=== PATIENT | male | born 1985 | race Caucasian/White ===

== ENCOUNTER 2018-08-06 12:00 | Outpatient (CLI) | payer OTHER, SELFPAY ==
[2018-08-06 12:32] LABS: Abs Immature Grans 0.01 k/cumm (0.0-0.09); Absolute Basophil Count 0.03 k/cumm (0.0-0.2); Absolute Eosinophil Count 0.07 k/cumm (0.0-0.7); Absolute Lymphocyte Count 1.37 k/cumm (1.2-3.4); Absolute Monocyte Count 0.52 k/cumm (0.11-0.7); Absolute Neutrophil Count 3.36 k/cumm (1.2-6.7); Basophils % 0.6; Eosinophils % 1.3; HGB 16.9 g/dL (13.5-17.5); Immature Grans % 0.2; Lymphocytes % 25.6; Mean Corp. HGB Concentration 34.5 g/dL (32.0-36.0); Mean Corpuscular Volume 86.9 fL (80-95); Mean Platelet Volume 9.2 fL (8.0-11.0); Monocytes % 9.7; Neutrophils % 62.6; Platelet Count 236 x1000/uL (130-400); RBC 5.64 m/cumm (4.50-6.00); RBC Distribution Width 12.3 % (11.8-14.1); White Blood Cell Count 5.36 k/cumm (4.4-10.8)
--- NOTE | 2018-08-06 12:40 | DI.RAD_ITS ---
SYMPTOMS/DIAGNOSIS: CHRONIC COUGH, R05 PA AND LATERAL CHEST: The heart is normal in size. The lungs are clear. The mediastinal structures and pleura appear intact. CONCLUSION: Normal chest.
[2018-08-06 13:06] LABS: ALT 28 U/L (12-78); AST 16 U/L (15-37); Albumin 4.4 g/dL (3.4-5.0); Alkaline Phosphatase 109 U/L (46-116); Anion Gap 6.5 mmol/L (3-11); BUN 11 mg/dL (7-18); Bilirubin, Total 0.6 mg/dL (0.2-1.0); CO2 29.5 mmol/L (21.0-32.0); CREATININE 1.09 mg/dL (0.70-1.30); Calcium 9.8 mg/dL (8.5-10.1); Chloride 103 mmol/L (98-107); Glucose 152 mg/dL (70-100); NT-proBNP 52 pg/mL; Potassium 4.5 mmol/L (3.5-5.1); Sodium 139 mmol/L (136-145); TSH (W/Ref FT4) 2.53 uIU/mL (0.358-3.74); Total Protein 8.3 g/dL (6.4-8.2); Troponin I < 0.02 ng/mL (0.00-0.06)
[2018-08-06 13:09] LABS: D-Dimer 168 ng/mlFEU (<500)
== END 2018-08-06 12:20 ==
PROVIDERS: PCP Nurse Practitioner; Visit Provider Nurse Practitioner
DX: R07.89 Other chest pain (principal); R05 Cough
CPT/HCPCS: 36415; 80053; 71046; 83880; 84443; 84484; 85025; 85379

== ENCOUNTER 2018-11-03 08:43 | Outpatient (REF) | payer OTHER, SELFPAY ==
[2018-11-03 15:13] LABS: Cholesterol 206 mg/dL (50-200); Glucose 135 mg/dL (70-100); HDL Cholesterol 48 mg/dL (40-60); LDL CHOLESTEROL 130 mg/dL (<100); Triglyceride 195 mg/dL (30-150)
== END 2018-11-03 09:03 ==
LOC: NCHCN 08:43
PROVIDERS: PCP Nurse Practitioner; Visit Provider Nurse Practitioner
DX: Z00.00 Encounter for general adult medical examination without abnormal findings (principal); Z13.1 Encounter for screening for diabetes mellitus; Z13.220 Encounter for screening for lipoid disorders; Z83.3 Family history of diabetes mellitus
CPT/HCPCS: 80061; 82947; 83721

== ENCOUNTER 2018-11-05 11:44 | Outpatient (REF) | payer OTHER, SELFPAY ==
[2018-11-05 21:11] LABS: Hemoglobin A1C 6.2 % (4.5-6.2)
== END 2018-11-05 12:04 ==
LOC: NCHCN 11:44
PROVIDERS: PCP Nurse Practitioner; Visit Provider Nurse Practitioner
DX: R73.01 Impaired fasting glucose (principal)
CPT/HCPCS: 83036

== ENCOUNTER 2019-12-28 10:10 | Outpatient (CLI) | payer OTHER, SELFPAY ==
[2019-12-29 21:04] LABS: COVID-19 RT-PCR UVMMC Result Negative (Negative)
== END 2019-12-28 10:30 ==
PROVIDERS: PCP Nurse Practitioner; Visit Provider Internal Medicine
DX: Z11.59 Encounter for screening for other viral diseases (principal)
CPT/HCPCS: U0003

== ENCOUNTER 2019-12-30 09:07 | Outpatient (CLI) | payer OTHER, SELFPAY ==
[2019-12-31 15:55] LABS: COVID-19 RT-PCR UVMMC Result Negative (Negative)
== END 2019-12-30 09:27 ==
PROVIDERS: PCP Nurse Practitioner; Visit Provider Internal Medicine
DX: Z11.59 Encounter for screening for other viral diseases (principal)
CPT/HCPCS: U0003

== ENCOUNTER 2020-06-08 20:50 | Outpatient (REF) | payer OTHER, SELFPAY ==
[2020-06-08 22:09] LABS: Hemoglobin A1C 6.2 % (<5.7)
[2020-06-16 13:35] LABS: Anaplasma phagocytophilum Negative (Negative); Ehrlichia chaffeensis Negative (Negative); Ehrlichia ewingii/canis Negative (Negative); Ehrlichia muris eauclairensis Negative (Negative); Lyme Ab w Rflx to Lyme Confirm Negative (Negative)
[2020-06-16 13:36] LABS: B. miyamotoi PCR Negative (Negative); Babesia divergens/MO-1 Negative (Negative); Babesia duncani Negative (Negative); Babesia microti Negative (Negative)
== END 2020-06-08 21:10 ==
LOC: NCHCN 20:50
PROVIDERS: PCP Nurse Practitioner; Visit Provider Internal Medicine
DX: M25.511 Pain in right shoulder (principal); R73.03 Prediabetes; M25.512 Pain in left shoulder
CPT/HCPCS: 87798; 83036; 86618

== ENCOUNTER 2021-03-26 19:53 | Outpatient (REF) | payer OTHER, SELFPAY ==
[2021-03-27 00:33] LABS: COVID-19 RT-PCR UVMMC Result Negative (Negative)
== END 2021-03-26 19:54 | disposition home or self-care (01) ==
LOC: NCHCN 19:53
PROVIDERS: PCP Nurse Practitioner; Visit Provider Internal Medicine
DX: Z20.822 Contact with and (suspected) exposure to COVID-19 (principal); J06.9 Acute upper respiratory infection, unspecified
CPT/HCPCS: U0003

== ENCOUNTER 2021-05-09 08:05 | Outpatient (REF) | payer OTHER, SELFPAY ==
[2021-05-09 21:29] LABS: Abs Immature Grans 0.01 10^3/uL (0.0-0.06); Absolute Basophil Count 0.02 10^3/uL (0.0-0.2); Absolute Eosinophil Count 0.05 10^3/uL (0.0-0.7); Absolute Lymphocyte Count 1.75 10^3/uL (1.2-3.4); Absolute Monocyte Count 0.45 10^3/uL (0.1-0.8); Absolute Neutrophil Count 2.08 10^3/uL (1.2-6.7); Basophils % 0.5; Eosinophils % 1.1; HCT 47.2 % (40.0-50.0); HGB 15.9 g/dL (13.5-17.5); Immature Grans % 0.2; Lymphocytes % 40.1; MCH 29.5 pg (27.0-33.0); MCHC 33.7 % (32.0-36.0); MCV 87.6 fL (80-95); MPV 9.8 fL (8.0-11.0); Monocytes % 10.3; Neutrophils % 47.8; Nucleated RBC 0 %; Platelet Count 225 10^3/uL (130-400); RBC 5.39 10^6/uL (4.36-5.78); RDW 11.8 % (11.8-14.1); RDW-SD 37.7 fL; WBC 4.36 10^3/uL (4.4-10.8)
[2021-05-09 21:32] LABS: ESR 3 mm/hr (0-15)
[2021-05-09 21:56] LABS: Hemoglobin A1C 6.1 % (<5.7)
[2021-05-10 06:44] LABS: ALT 32 U/L (16-63); AST 18 U/L (15-37); Albumin 4.4 g/dL (3.4-5.0); Alkaline Phosphatase 90 U/L (46-116); Anion Gap 6.9 mmol/L (3-11); BUN 16 mg/dL (7-18); Bilirubin, Total 0.6 mg/dL (0.2-1.0); CO2 28.1 mmol/L (21.0-32.0); CREATININE 1.1 mg/dL (0.70-1.30); Calculated LDL 123 mg/dL (<100); Chloride 105 mmol/L (98-107); Cholesterol 188 mg/dL (<200); Glucose 132 mg/dL (74-106); HDL Cholesterol 49 mg/dL (40-60); Potassium 4.4 mmol/L (3.5-5.1); Sodium 140 mmol/L (136-145); Total Protein 7.4 g/dL (6.4-8.2); Triglyceride 82 mg/dL (<150)
[2021-05-10 07:04] LABS: Calcium 9.4 mg/dL (8.5-10.1)
[2021-05-11 10:41] LABS: Lyme Ab w Rflx to Lyme Confirm Negative (Negative)
[2021-05-13 13:22] LABS: Anaplasma phagocytophilum Negative (Negative); B. miyamotoi PCR Negative (Negative); Babesia divergens/MO-1 Negative (Negative); Babesia duncani Negative (Negative); Babesia microti Negative (Negative); Ehrlichia chaffeensis Negative (Negative); Ehrlichia ewingii/canis Negative (Negative); Ehrlichia muris eauclairensis Negative (Negative)
[2021-05-14 08:38] LABS: Bartonella Henselae IgG <1:128 titer (<1:128); Bartonella Henselae IgM <1:20 titer (<1:20); Bartonella Quintana IgG <1:128 titer (<1:128); Bartonella Quintana IgM <1:20 titer (<1:20)
[2021-05-14 08:41] LABS: ANA Interpretation Positive (Negative); ANA Titer Pattern 1:160 Speckled
== END 2021-05-09 08:06 | disposition home or self-care (01) ==
LOC: NCHCN 08:05
PROVIDERS: PCP Nurse Practitioner; Visit Provider Internal Medicine
DX: R73.03 Prediabetes (principal); H20.00 Unspecified acute and subacute iridocyclitis
CPT/HCPCS: 80053; 80061; 85652; 87798; 83036; 85025; 86038; 86611; 86618

== ENCOUNTER 2021-05-14 17:23 | Outpatient (REF) | payer OTHER, SELFPAY ==
[2021-05-17 14:33] LABS: dsDNA Ab, IgG <12.3 IU/mL (<30.0)
== END 2021-05-14 17:24 | disposition home or self-care (01) ==
LOC: NCHCN 17:23
PROVIDERS: PCP Nurse Practitioner; Visit Provider Internal Medicine
DX: R79.89 Other specified abnormal findings of blood chemistry (principal); H20.00 Unspecified acute and subacute iridocyclitis
CPT/HCPCS: 86225

== ENCOUNTER 2021-06-13 11:19 | Outpatient (REF) | payer OTHER, SELFPAY ==
[2021-06-14 16:14] LABS: COVID-19 RT-PCR UVMMC Result Negative (Negative)
== END 2021-06-13 11:20 | disposition home or self-care (01) ==
LOC: NCHCN 11:19
PROVIDERS: PCP Nurse Practitioner; Visit Provider Internal Medicine
DX: Z20.822 Contact with and (suspected) exposure to COVID-19 (principal)
CPT/HCPCS: U0003

== ENCOUNTER 2021-06-15 14:00 | Outpatient (REF) | payer OTHER, SELFPAY ==
[2021-06-17 15:02] LABS: COVID-19 RT-PCR UVMMC Result Negative (Negative)
== END 2021-06-15 14:01 | disposition home or self-care (01) ==
LOC: NCHCN 14:00
PROVIDERS: PCP Nurse Practitioner; Visit Provider Internal Medicine
DX: Z20.822 Contact with and (suspected) exposure to COVID-19 (principal)
CPT/HCPCS: U0003

== ENCOUNTER 2022-06-04 16:48 | Outpatient (REF) | payer BC, SELFPAY ==
[2022-06-04 18:58] LABS: HCT 44.4 % (40.0-50.0); HGB 15.1 g/dL (13.5-17.5); MCH 29.6 pg (27.0-33.0); MCV 87 fL (80-95); MPV 9.5 fL (8.0-11.0); Platelet Count 242 10^3/uL (130-400); RDW 11.8 % (11.8-14.1); RDW-SD 37.6 fL; WBC 6.59 10^3/uL (4.4-10.8)
[2022-06-04 19:02] LABS: Anion Gap 8.1 mmol/L (3-11); BUN 21 mg/dL (7-18); CO2 25.9 mmol/L (21.0-32.0); CREATININE 1.2 mg/dL (0.70-1.30); Calcium 9.4 mg/dL (8.5-10.1); Chloride 104 mmol/L (98-107); Estimated GFR 78.89 (mL/min/1.73m2); Glucose 127 mg/dL (74-106); Sodium 138 mmol/L (136-145)
[2022-06-04 19:09] LABS: Hemoglobin A1C 6.1 % (<5.7)
[2022-06-06 13:37] LABS: ANA Interpretation Positive (Negative); ANA Titer Pattern 1:160 Speckled
[2022-06-06 13:59] LABS: dsDNA Ab, IgG <12.3 IU/mL (<30.0)
== END 2022-06-04 16:49 | disposition home or self-care (01) ==
LOC: NCHCN 16:48
PROVIDERS: PCP Nurse Practitioner; Visit Provider Internal Medicine
DX: R79.89 Other specified abnormal findings of blood chemistry (principal); R73.03 Prediabetes; Z00.00 Encounter for general adult medical examination without abnormal findings; Z72.0 Tobacco use
CPT/HCPCS: 80048; 85027; 83036; 86038; 86225

== ENCOUNTER 2023-06-10 18:01 | Outpatient (REF) | payer BC, SELFPAY ==
[2023-06-10 20:44] LABS: Anion Gap 8.9 mmol/L (3-11); BUN 21 mg/dL (7-18); CO2 26.1 mmol/L (21.0-32.0); CREATININE 1.2 mg/dL (0.70-1.30); Calcium 9.9 mg/dL (8.5-10.1); Chloride 100 mmol/L (98-107); Glucose 198 mg/dL (74-106); Potassium 4.1 mmol/L (3.5-5.1); Sodium 135 mmol/L (136-145)
[2023-06-10 21:00] LABS: Hemoglobin A1C 6.1 % (<5.7)
[2023-06-12 14:57] LABS: ANA Interpretation Negative (Negative)
== END 2023-06-10 18:02 | disposition home or self-care (01) ==
LOC: NCHCN 18:01
PROVIDERS: PCP Nurse Practitioner; Visit Provider Internal Medicine
DX: R79.89 Other specified abnormal findings of blood chemistry (principal); R73.03 Prediabetes; E78.5 Hyperlipidemia, unspecified
CPT/HCPCS: 80048; 83036; 86038